=== PATIENT | female | born 1990 | race Caucasian/White ===

== ENCOUNTER 2018-04-24 17:25 | Emergency (ER) | payer OTHER ==
[~2018-04-24] VITALS: Ht 162.6 cm; Wt 109.0 kg
[2018-04-24 17:30] VITALS: BP 126/73
[2018-04-24] MEDS ORDERED: HYDROcodone/APAP 5/325 TABLET PO ONE (18:19)
[2018-04-24] MEDS ORDERED: ONDANSETRON ODT 4 MG PO ONE (18:30)
[2018-04-24] MEDS ORDERED: DIAZEPAM 5 MG TABLET PO ONE (18:30)
[2018-04-24] MEDS ORDERED: KETOROLAC 60 MG/2 ML IM ONE (18:30)
[2018-04-24] MEDS ORDERED: KETOROLAC 30 MG/1 ML ONE (18:46)
[2018-04-24] MEDS ORDERED: DIAZEPAM 5 MG TABLET ONE (18:46)
[2018-04-24] MEDS ORDERED: HYDROcodone/APAP 5/325 TABLET ONE (18:46)
[2018-04-24] MEDS ORDERED: ONDANSETRON ODT 4 MG ONE (18:46)
--- NOTE | 2018-04-24 18:50 | NUR ---
TASK RN: PT MEDICATED PER EMAR.
--- NOTE | 2018-04-24 19:49 | NUR ---
pt given dc instructions and script. pt educated regarding dc rx for robaxin and naproxen. pt reports pain improved to tolerable level. pt a&o, resps even and unlabored, pt amb to dc desk with steady gait, nadn at dc. Addendum: 04/24/18 at 1951 by AILYN pt given dc instructions and script. pt educated regarding dc rx for robaxin and naproxen. pt reports pain improved to tolerable level.pt educated not to drive d/t meds given. pt a&o, resps even and unlabored, pt amb to dc desk with steady gait, nadn at dc.
== END 2018-04-24 19:50 | disposition home or self-care (01) ==
LOC: ED 19:44
DX: M54.41 Lumbago with sciatica, right side (principal)
CPT/HCPCS: 72110; 96372; 99284; J1885; Q0162